=== PATIENT | male | born 1990 | race Two or more races ===

== ENCOUNTER 2021-10-30 21:28 | Emergency (ER) | payer MEDICAID ==
[~2021-10-30] VITALS: Ht 180.3 cm; Wt 109.1 kg
[2021-10-31 00:04] VITALS: BP 132/74
== END 2021-10-31 00:42 | disposition home or self-care (01) ==
LOC: EMS 21:30
DX: S00.03XA Contusion of scalp, initial encounter (principal); W18.39XA Other fall on same level, initial encounter; Y93.89 Activity, other specified; Y92.89 Other specified places as the place of occurrence of the external cause; Y99.8 Other external cause status
CPT/HCPCS: 70450; 99284